=== PATIENT | male | born 1975 | race Caucasian/White ===

== ENCOUNTER 2016-10-14 12:57 | Emergency (ER) | payer SELFPAY ==
[~2016-10-14] VITALS: Ht 180.3 cm; Wt 87.0 kg
[~2016-10-14 12:57] MED LIST: ERYT1O LEFT EYE; TRIA.1%T TOP
[2016-10-14 12:59] VITALS: BP 144/91; PULSE 84; RESP 16; TEMP 98.2; O2SAT 99
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
[2016-10-14] MEDS ORDERED: IBUP800T23 PO (13:38)
[2016-10-14] MEDS ORDERED: ROBA500T PO (13:38)
[2016-10-14] MEDS ORDERED: METHOCARBAMOL 500 MG TAB PO ONE (13:45)
[2016-10-14] MEDS ORDERED: IBUPROFEN 800 MG TAB PO ONE (13:45)
[2016-10-14] MEDS ORDERED: TETANUS/DIPHTHERIA TOXOID ADULT 0.5 ML VIAL IM ONE (13:45)
[2016-10-14] MEDS ORDERED: PROPARACAINE HCL 0.5% OPHT SOLN 15 ML BTL RIGHT EYE ONE (13:45)
[2016-10-14] MEDS ORDERED: ERYTOIN10 RIGHT EYE (13:58)
== END 2016-10-14 14:13 | disposition home or self-care (01) ==
LOC: NEPK 12:57
DX: S16.1XXA Strain of muscle, fascia and tendon at neck level, initial encounter (principal); S00.31XA Abrasion of nose, initial encounter; S30.811A Abrasion of abdominal wall, initial encounter; S90.511A Abrasion, right ankle, initial encounter; S05.01XA Injury of conjunctiva and corneal abrasion without foreign body, right eye, initial encounter; Z23 Encounter for immunization; Z72.0 Tobacco use; Y93.72 Activity, wrestling
CPT/HCPCS: 90471; 90714